=== PATIENT | female | born 1985 | race Caucasian/White ===

== ENCOUNTER 2016-09-06 21:10 | Emergency (ER) | payer SELFPAY ==
[~2016-09-06 21:10] MED LIST: CELEXA40 MG PO; CEPHALEXIN500 MG PO; CLINDAMYCIN HC300 MG PO; CLONIDINE HCL0.2 MG PO; GABAPENTIN100 MG PO; METFORMIN HCL500 MG PO; NORCO 5-325 TA1 EACH PO; TESSALON PERLE100 MG PO; TRAMADOL HCL50 MG PO; TYLENOL WITH C1 EACH PO; ZITHROMAX250 MG PO; ZOLOFT100 MG PO
[2016-09-06] MEDS ORDERED: IBUPROFEN800 MG PO (21:24)
[2016-09-06] MEDS ORDERED: DICLOFENAC SODI75 MG PO (21:47)
[2016-09-06] MEDS ORDERED: NORCO 5-325 TA1 EACH PO (21:47)
== END 2016-09-06 22:06 | disposition home or self-care (01) ==
LOC: ED 21:10
DX: M54.5 Low back pain (principal); F32.9 Major depressive disorder, single episode, unspecified; Z88.0 Allergy status to penicillin; Z88.5 Allergy status to narcotic agent; Z88.8 Allergy status to other drugs, medicaments and biological substances; Z79.899 Other long term (current) drug therapy
CPT/HCPCS: 99283

== ENCOUNTER 2017-05-02 09:14 | Emergency (ER) | payer SELFPAY ==
[~2017-05-02] VITALS: Ht 165.1 cm; Wt 99.8 kg
[~2017-05-02 09:14] MED LIST changes: +DICLOFENAC SODI75 MG PO; +IBUPROFEN800 MG PO
[2017-05-02] MEDS ORDERED: PROZAC20 MG PO (09:30)
[2017-05-02] MEDS ORDERED: MIRAPEX0.125 MG PO (09:30)
== END 2017-05-02 09:38 | disposition home or self-care (01) ==
LOC: ED 09:14
DX: H92.01 Otalgia, right ear (principal)

== ENCOUNTER 2017-09-05 19:52 | Emergency (ER) | payer MEDICAID ==
[~2017-09-05] VITALS: Ht 165.1 cm; Wt 102.1 kg
[~2017-09-05 19:52] MED LIST changes: +MIRAPEX0.125 MG PO; +PROZAC20 MG PO
[2017-09-05] MEDS ORDERED: DYAZIDE 37.5-251 EA PO (20:15)
[2017-09-05] MEDS ORDERED: TRANSDERM-SCOP1 EACH TD (21:30)
--- NOTE | 2017-09-06 11:32 | EKG ---
[facility] [address] [facility] [place] [address] Signed Normal sinus rhythm Septal infarct , age undetermined Abnormal ECG No previous ECGs available Confirmed by LISA HASSAN MD ([id number]) on 09/06/2017 11:32:13 AM Electronically Signed By: LISA HASSAN MD 09/06/17 1132 PATIENT NAME: COLTEN MOSS Electrocardiogram DATE OF : 81 PHYSICIAN: LISA HASSAN MD REPORT #: [id number] REPORT IS CONFIDENTIAL AND NOT TO BE RELEASED WITHOUT AUTHORIZATION
== END 2017-09-05 21:44 | disposition home or self-care (01) ==
LOC: ED 19:52
DX: R42 Dizziness and giddiness (principal); F32.9 Major depressive disorder, single episode, unspecified; Z88.5 Allergy status to narcotic agent; Z88.0 Allergy status to penicillin; Z88.8 Allergy status to other drugs, medicaments and biological substances; Z79.899 Other long term (current) drug therapy
CPT/HCPCS: 80053; 84484; 84703; 85025; 93005; 93010; 99284

== ENCOUNTER 2017-12-08 17:23 | Emergency (ER) | payer SELFPAY ==
[~2017-12-08] VITALS: Ht 165.1 cm; Wt 108.9 kg
--- OUTSIDE RECORDS SUMMARY | ~2017-12-08 | XMS | Clinical Summary ---
Demographics + + + | Address | [address] | | | [place] [address] | + + + | Home Phone | | + + + | Preferred Language | Unknown | + + + | Marital Status | | + + + | Judaism Affiliation | Unknown | + + + | Race | Unknown | + + + | Ethnic Group | Unknown | + + + Author + + + | Author | Located Within [facility] | | | and [place] | + + + | Organization | Located Within [facility] | | | and [place] | + + + | Address | Unknown | + + + | Phone | Unavailable | + + + Support + + +---------+ + | Name | Relationship | Address | Phone | + + +---------+ + | Sara Tucker | ECON | Unknown | | + + +---------+ + | Mac Lopez | CHRIS | Unknown | | + + +---------+ + Care Team Providers + +------+ + | Care [employer] Le[employer] 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 | Disp. | Refills | Star | End | Statu | | | | | | t | Date | s | | | | | | Date | | | + + +-------+---------+------+------+-------+ | FLUoxetine | Take 20 mg by mouth. | | | 04/10 | 04/10 | Activ | | (PROZAC) 20 mg | | | | 05/27 | 05/27 | e | | capsule | | | | 18 | 19 | | + + +-------+---------+------+------+-------+ | gabapentin | Take 800 mg by | | | 04/10 | 04/10 | Activ | | (NEURONTIN) 800 MG | mouth. | | | 05/27 | 05/27 | e | | tablet | | | | 18 | 19 | | + + +-------+---------+------+------+-------+ | pramipexole | Take 0.125 mg by | | | 03/0 | 03/0 | Activ | | (MIRAPEX) 0.125 MG | mouth. | | | 08/27 | 08/27 | e | | tablet | | | | 18 | 19 | | + + +-------+---------+------+------+-------+ | traMADol (ULTRAM) | Take 50 mg by mouth. | | | | | Activ | | 50 mg tablet | | | | | | e | + + +-------+---------+------+------+-------+ Active Problems + + + | Problem | Noted Date | + + + | Meniere's disease of right ear | 05/27/2017 | + + + | Chronic midline low back pain without sciatica | 05/23/2017 | + + + | Major depressive disorder | 05/23/2017 | + + + | Restless leg syndrome | 05/23/2017 | + + + | Benign paroxysmal positional vertigo | 05/23/2017 | + + + | Dizziness and giddiness | 05/23/2017 | + + + Social History + +-------+ +--------+------+ | Tobacco Use | Types | Packs/Day | Years | Date | | | | | Used | | + +-------+ +--------+------+ | Never Smoker | | | | | + +-------+ +--------+------+ + +---+---+---+ | Smokeless Tobacco: | | | | | Never Used | | | | + +---+---+---+ + + + | Sex Assigned at | Date Recorded | | | | + + + | Not on file | | + + + Last Filed Vital Signs + +---------+ + | Vital Sign | Reading | Time Taken | + +---------+ + | Blood Pressure | - | - | + +---------+ + | Pulse | 88 | 05/26/20171537 PDT | + +---------+ + | Temperature | - | - | + +---------+ + | Respiratory Rate | - | - | + +---------+ + | Oxygen Saturation | 96% | 05/26/20171537 PDT | + +---------+ + | Inhaled Oxygen | - | - | | Concentration | | | + +---------+ + | Weight | - | - | + +---------+ + | Height | - | - | + +---------+ + | Body Mass Index | - | - | + +---------+ + Plan of Treatment + + + + + | Health Maintenance | Due Date | Last Done | Comments | + + + + + | Cervical Cancer | | | | | Screening (Pap) | 4 | | | + + + + + | Vaccine: Influenza | | | | | (#1) | 8 | | | + + + + + | Vaccine: | | 01/21/2011 | | | Dtap/Tdap/Td (2 - | 1 | | | | Td) | | | | + + + + + Results Not on filefrom Last 3 Months"
[~2017-12-08 17:23] MED LIST changes: +DYAZIDE 37.5-251 EA PO; +TRANSDERM-SCOP1 EACH TD
[2017-12-08] MEDS ORDERED: ZITHROMAX250 MG PO (17:46)
== END 2017-12-08 18:18 | disposition home or self-care (01) ==
LOC: ED 17:23
DX: S61.253A Open bite of left middle finger without damage to nail, initial encounter (principal); W54.0XXA Bitten by dog, initial encounter; F32.9 Major depressive disorder, single episode, unspecified; Z88.0 Allergy status to penicillin; Z88.5 Allergy status to narcotic agent; Z88.8 Allergy status to other drugs, medicaments and biological substances; Z79.899 Other long term (current) drug therapy
CPT/HCPCS: 90471; 90715; 99283

== ENCOUNTER 2022-02-16 13:05 | Emergency (ER) | payer OTHER ==
[~2022-02-16] VITALS: Ht 165.1 cm; Wt 121.3 kg
--- OUTSIDE RECORDS SUMMARY | 2022-02-16 13:08 | XMS ---
PreManage Notification: COLTEN MOSS Security Ceo Events No recent Security Events currently on file [facility] There are no care providers on record at this time. [facility] has no Care Guidelines for this patient. [facility] VISIT COUNT (12 MO.) 1 SHIRA Draper TOTAL 1 NOTE: Visits indicate total known visits. ED/C VISIT TRACKING (12 MO.) 02/16/2022 13:06 SHIRA [facility]ron [place] TYPE: Emergency COMPLAINT: - [facility] INPATIENT VISIT TRACKING (12 MO.) No inpatient visits to display in this time frame [id number]
[2022-02-16] MEDS ORDERED: SERTRALINE HCL100 MG PO (14:01)
== END 2022-02-16 14:39 | disposition home or self-care (01) ==
LOC: ED 13:05
DX: L42 Pityriasis rosea (principal); E28.2 Polycystic ovarian syndrome; Z88.5 Allergy status to narcotic agent; Z88.0 Allergy status to penicillin; Z88.8 Allergy status to other drugs, medicaments and biological substances; Z79.899 Other long term (current) drug therapy
CPT/HCPCS: 99282

== ENCOUNTER 2024-01-12 01:10 | Emergency (ER) | payer OTHER ==
[~2024-01-12] VITALS: Ht 165.1 cm; Wt 120.0 kg
[~2024-01-12 01:10] MED LIST changes: +SERTRALINE HCL100 MG PO
[2024-01-12] MEDS ORDERED: BENZONATATE 100 MG CAP PO ONE (01:30)
[2024-01-12] MEDS ORDERED: ALBUTEROL/IPRATROPIUM 3 ML NEB INH ONE (01:30)
[2024-01-12 02:05] LABS: INFLUENZA B NAA NEGATIVE (NEGATIVE); RESPIRATORY SYNCYTIAL VIR NAA NEGATIVE (NEGATIVE)
[2024-01-12] MEDS ORDERED: ALBUTEROL SULFATE 8 GM HOME.PACK INH ONE (02:15)
[2024-01-12] MEDS ORDERED: INHALER, ASSIST DEVICES 1 EACH SPACER MISC ONE (02:15)
[2024-01-12] MEDS ORDERED: BENZONATATE200 MG PO (02:15)
[2024-01-12] MEDS ORDERED: methylPREDNISolone 4 MG HOME.PACK PO ONE (02:15)
[2024-01-12 02:23] VITALS: BP 141/90
== END 2024-01-12 02:25 | disposition home or self-care (01) ==
LOC: ED 01:10
PROVIDERS: Family Medicine
DX: J40 Bronchitis, not specified as acute or chronic (principal); Z88.0 Allergy status to penicillin; Z88.5 Allergy status to narcotic agent; Z88.8 Allergy status to other drugs, medicaments and biological substances; Z11.52 Encounter for screening for COVID-19
CPT/HCPCS: 71045; 87502; 94640; 99285-25; U0002

== ENCOUNTER 2024-04-03 19:11 | Emergency (ER) | payer OTHER ==
[~2024-04-03] VITALS: Ht 165.1 cm; Wt 119.7 kg
[~2024-04-03 19:11] MED LIST changes: +BENZONATATE200 MG PO
[2024-04-03 20:16] VITALS: BP 148/87
== END 2024-04-03 20:17 | disposition home or self-care (01) ==
LOC: ED 19:11
DX: T16.1XXA Foreign body in right ear, initial encounter (principal); Z88.5 Allergy status to narcotic agent; Z88.8 Allergy status to other drugs, medicaments and biological substances; Z88.0 Allergy status to penicillin; Z79.899 Other long term (current) drug therapy; W44.8XXA Other foreign body entering into or through a natural orifice, initial encounter
CPT/HCPCS: 69200; 99282

== ENCOUNTER 2024-07-16 10:05 | Emergency (ER) | payer OTHER ==
[~2024-07-16] VITALS: Ht 165.1 cm; Wt 119.7 kg
[2024-07-16] MEDS ORDERED: PRAMIPEXOLE DI0.5 MG PO (10:22)
[2024-07-16] MEDS ORDERED: PRAMIPEXOLE D0.75 MG PO (10:22)
[2024-07-16] MEDS ORDERED: IBUPROFEN 600 MG TAB PO ONE (11:00)
[2024-07-16] MEDS ORDERED: ACETAMINOPHEN 325 MG TAB PO ONE (11:00)
[2024-07-16 12:04] VITALS: BP 129/87
== END 2024-07-16 12:04 | disposition home or self-care (01) ==
LOC: ED 10:05
DX: S09.90XA Unspecified injury of head, initial encounter (principal); S39.92XA Unspecified injury of lower back, initial encounter; M54.2 Cervicalgia; Z88.5 Allergy status to narcotic agent; Z88.0 Allergy status to penicillin; W01.10XA Fall on same level from slipping, tripping and stumbling with subsequent striking against unspecified object, initial encounter
CPT/HCPCS: 70450; 99283-25; A9270